=== PATIENT | male | born 1955 | race African-American/Black ===

== ENCOUNTER 2018-12-27 17:24 | Inpatient (IN) | payer MEDICARE ==
[2018-12-27 18:35] LABS: ALT (SGPT) 16 U/L (8-55); AST (SGOT) 27 U/L (5-34); Albumin 3.2 g/dL (3.4-4.8); Alkaline Phosphatase 99 U/L (40-150); Anion Gap 15 mmol/L (10-20); BUN (Urea Nitrogen) 32 mg/dL (8.4-25.7); Bilirubin, Total 0.5 mg/dL (0.2-1.2); Calc. Creatinine Clearance 0 mL/min (70-130); Calcium 9.4 mg/dL (7.8-10.44); Carbon Dioxide 23 mmol/L (23-31); Chloride 99 mmol/L (98-107); Estimated GFR-MDRD 37; Glucose 221 mg/dL (80-115); Hemoglobin 10.5 g/dL (14.0-18.0); Mean Corpuscular Hemoglobin 26.5 pg (27.0-31.0); Mean Corpuscular Volume 85.7 fL (78.0-98.0); Platelet Count 434 thou/uL (130-400); Protein, Total 8.2 g/dL (5.8-8.1); RBC Distribution Width 13.7 % (11.5-14.5); Red Blood Cell (RBC) Count 3.97 mill/uL (4.70-6.10); Sodium 133 mmol/L (136-145); White Blood Cell (WBC) Count 12.5 thou/uL (4.8-10.8)
[2018-12-27 19:04] LABS: Band 5 % (5-11); Hypochromia SLIGHT = 6-15 cells (100X) (0-5/hpf); Lymphocytes 6 % (21-51); MDiff Complete? YES; Monocytes 7 % (0-10); Neutrophil 80 % (42-75); Ovalocytes SLIGHT = 2-5 cells (100X) (0-1/hpf); Platelet Morphology Comment Appears Increased; Polychromasia SLIGHT = 2-3 cells (100X) (0-2/hpf); Reactive Lymphocytes 2 % (0-10); Target Cells SLIGHT = 2-5 cells (100X) (0-1/hpf)
[2018-12-27] MEDS ORDERED: Vancomycin HCl 1.25 GM in Sodium Chloride 0.9% 250 ML 250 ML IVPB SCH (19:30)
--- NOTE | 2018-12-27 20:19 | RAD ---
LEFT FOOT THREE VIEWS: 12/27/18 HISTORY: Fever. Chills. COMPARISON: None. FINDINGS: There is diffuse bone demineralization. There is amputation of the first and second digit. There is s ome lucency and demineralization involving the residual first metatarsal and the second metatarsal. T here is also demineralization and possibly erosive changes centered about the third, fourth and fifth metatarsophalangeal joint space. On the lateral projection, there appears to be vacuum device likely associated with a plantar ulcer. There is soft tissue swelling. IMPRESSION: 1. Presumed ulcer on the plantar surface at the level of the midfoot. There is soft tissue swell ing, worrisome for cellulitis. 2. There is erosive changes and demineralization involving all five digits. Multifocal osteomyel itis cannot be excluded. POS: PPP
[2018-12-27] MEDS ORDERED: Morphine 4 MG/ML VIAL ONE (21:29)
[2018-12-27] MEDS ORDERED: HYDROcodone/Acetaminophen 5/325 mg Tablet ONE ×2 (22:32→22:33)
[2018-12-27] MEDS ORDERED: Dextrose 5% in Water 1,000 ML IV PRN (23:09)
[2018-12-27] MEDS ORDERED: HumaLOG 300 UNITS/3 ML VIAL SC PRN (23:09)
[2018-12-27] MEDS ORDERED: Dextrose 50% Abboject 50 ML SYRINGE SLOW IVP PRN (23:09)
[2018-12-27] MEDS ORDERED: Ondansetron PF 4 MG/2 ML Vial IVP PRN (23:10)
[2018-12-27] MEDS ORDERED: Acetaminophen 325 MG TAB PO PRN (23:10)
[2018-12-27] MEDS ORDERED: Acetaminophen 325 MG TAB ONE ×2 (23:13)
[2018-12-27] MEDS ORDERED: Piperacillin/Tazobactam 4.5 GM VIAL ONE (23:40)
[2018-12-27] MEDS: Piperacillin/Tazobactam 4.5 GM in Sodium Chloride 0.9% 100 ML IVPB SCH (23:43)
[2018-12-28 01:11] VITALS: BMI 26.4
[2018-12-28] MEDS: Sodium Chloride 0.9% 1,000 ML IV SCH ×2 (01:42→15:37)
[2018-12-28] MEDS ORDERED: VANCOMYCIN IVPB PRN (01:49)
--- NOTE | 2018-12-28 02:11 | HP ---
CODE STATUS: Full code. TIME OF EVALUATION: 11:00 p.m. CHIEF COMPLAINT: Fever and right foot pain. HISTORY OF PRESENT ILLNESS: This is a 63-year-old male patient with past medical history of recent amputation on the left foot. Surgery was done by Dr. Bolanos. The patient had both diabetes foot ulcer that was nonhealing and also have underlying peripheral vascular disease. The patient came to the hospital after having fever, the fever has been up and down for the past week, measure here in the hospital 100.5. The likely trigger is an old infection on the left foot. The patient had a surgery of toe amputation, symptoms are moderate. The pain in the foot has been reported as 7/10 associated with some shortness of breath. The symptoms started insidiously and gradually have been getting worse. REVIEW OF SYSTEMS: CONSTITUTIONAL: The patient had fever, chills, generalized weakness. RESPIRATORY: Occasional cough, no sputum production, shortness of breath. CARDIOVASCULAR: No chest pain or palpitations. GASTROINTESTINAL: No nausea, no vomiting, diarrhea, or abdominal pain. TRIAL LAWYER: No dizziness, headache, or feeling lightheaded. The patient does have peripheral neuropathy, this is treated. GENITOURINARY: No burning on urination. EXTREMITIES: The patient has left metatarsal redness, swelling, pain, has blackish color in that area. All other systems were reviewed and negative except for the findings mentioned above. PAST MEDICAL HISTORY: The patient has history of diabetes, foot ulcer with wound VAC, and hypertension. SURGICAL HISTORY: Foot surgery on the right and femoral bypass. SOCIAL HISTORY: No alcohol, no drug use. No smoking history. FAMILY HISTORY: Mother and father with diabetes. KNOWN ALLERGIES: No known drug allergies. REPORTED MEDICATIONS: 1. Atorvastatin. 2. Losartan. PHYSICAL EXAMINATION: VITAL SIGNS: On presentation, blood pressure 108/61, heart rate 115, respiratory rate was 18, temperature 99, pain was 7/10, oxygen saturation was 96 on room air. GENERAL APPEARANCE: The patient is alert, oriented, mild distress due to pain. HEENT: Eyes, normal conjunctiva. Moist oral mucosa. Anicteric. No JVD. RESPIRATORY: Bilateral air entry. No rales. No wheezes. Symmetric expansion. CARDIOVASCULAR: Normal rate, regular rhythm. No murmurs. No gallop. ABDOMEN: Soft, normal bowel sounds. MUSCULOSKELETAL: The patient has left metatarsal area that is swollen, tender, with change in coloration, warm. SKIN: Warm, intact. No pallor, no rash except for the findings mentioned above. Peripheral pulses are present. Capillary refill seems to be intact. NEURO: No evidence of any new focal weakness. Baseline speech. Cranial nerves seems to be intact. PSYCH: The patient is in good mood. No anxiety. Optimal judgment. DIAGNOSTIC STUDIES: Foot x-ray was done. The patient has presumed ulcer in the plantar surface at the level of the mid foot. There is soft tissue swelling, worrisome for cellulitis. There are erosive changes and demineralization involving all 5 digits. Multifocal osteomyelitis cannot be excluded. LABORATORY DATA: Labs were reviewed. The patient has white count 12.5, hemoglobin 10.5, MCV 85.7, platelet count 434. Chemistry; sodium 133, potassium 4.0, chloride 99, carbon dioxide 23, anion gap 15, BUN 32, creatinine 1.8, the previous creatinine was 1.3, GFR 37, glucose 221, lactic acid 1.9, calcium 9.4, total bilirubin 0.5, AST 27, ALT 16, alkaline phosphatase 99. Serum total protein 8.2, albumin 3.2, globulin 5.0, albumin-globulin ratio is 0.6. ASSESSMENT AND PLAN: The patient will be placed in the hospital with following medical problems: 1. Sepsis. The patient has fever, tachycardia, possible source is left foot osteomyelitis. The patient has been started on broad-spectrum antibiotics, follow cultures, we will adjust treatment as needed. The patient will need followup from Dr. Bolanos to see if any other surgical procedure is needed. 2. Left foot osteomyelitis remains as a possibility. Given x-ray findings, the patient has been started on broad-spectrum antibiotics. Plan as above to go to Dr. Bolaons. The patient is high risk for further need for amputation. 3. Uncontrolled diabetes. The patient has blood sugar of 221. We will reconcile home medications. We will place the patient on sliding scale for optimal control. The patient received counselling for diabetic diet. 4. Chronic normocytic anemia. This might be related to chronic kidney disease, also due to chronic infection, no need for any acute intervention, we will treat underlying problems, we will monitor, we will treat accordingly. 5. Hyponatremia with sodium of 133. This is mild, no need for any acute intervention at this point. We will monitor, we will treat accordingly. 6. Acute on chronic kidney injury. The previous creatinine was 1.3, today is 1.8. We will give some gentle hydration, we will monitor fluid status, we will adjust treatment as needed. 7. Uncontrolled hypertension. The patient presented with systolic blood pressure . We will reconcile home medications, we will not treat aggressively given risk for septic shock. 8. Left foot ulcer, we will order wound care. Rest of recommendations per Dr. Bolanos and Wound Care. 9. Deep venous thrombosis prophylaxis. Job ID: [id number]
[2018-12-28 04:41] LABS: #Eosinphils 0.1 thou/uL (0.0-0.7); #Lymphocytes 1.5 thou/uL (1.20-3.40); #Monocytes 1.3 thou/uL (0.11-0.59); #Neutrophils 10.2 thou/uL (1.40-6.50); %Basophils 0.3 % (0.0-1.0); %Eosinophils 0.7 % (0.0-10.0); %Lymphocytes 11.2 % (21.0-51.0); %Monocytes 10.2 % (0.0-10.0); %Neutrophils 77.6 % (42.0-75.0); Hemoglobin 8.7 g/dL (14.0-18.0); Mean Corpuscular HGB CONC 31.3 g/dL (32.0-36.0); Mean Corpuscular Hemoglobin 26.8 pg (27.0-31.0); Mean Corpuscular Volume 85.5 fL (78.0-98.0); Mean Platelet Volume 8.8 fL (7.4-10.4); Platelet Count 373 thou/uL (130-400); RBC Distribution Width 13.7 % (11.5-14.5); Red Blood Cell (RBC) Count 3.24 mill/uL (4.70-6.10); White Blood Cell (WBC) Count 13.2 thou/uL (4.8-10.8)
[2018-12-28 05:04] LABS: Anion Gap 16 mmol/L (10-20); BUN (Urea Nitrogen) 26 mg/dL (8.4-25.7); Calc. Creatinine Clearance 69 mL/min (70-130); Calcium 8.4 mg/dL (7.8-10.44); Carbon Dioxide 20 mmol/L (23-31); Chloride 102 mmol/L (98-107); Estimated GFR-MDRD 67; Glucose 141 mg/dL (80-115); Potassium 3.8 mmol/L (3.5-5.1); Sodium 134 mmol/L (136-145)
[2018-12-28] MEDS: HYDROcodone/Acetaminophen 5/325 mg Tablet PO PRN ×3 (08:01→19:48)
[2018-12-28] MEDS ORDERED: Non-Formulary Item 1 EACH (Gabapentin [Gabapentin] 1 TAB) PO SCH (09:00)
[2018-12-28] MEDS ORDERED: Atorvastatin Calcium 40 MG TAB PO SCH (09:00)
[2018-12-28] MEDS ORDERED: Famotidine 20 MG TAB PO SCH (09:00)
[2018-12-28] MEDS ORDERED: Non-Formulary Item 1 EACH (Losartan Potassium [Cozaar] 50 MG) PO SCH (09:00)
[2018-12-28] MEDS: Piperacillin/Tazobactam 4.5 GM in Sodium Chloride 0.9% 100 ML IVPB SCH ×3 (09:45→23:16)
[2018-12-28] MEDS: Atorvastatin Calcium 40 MG TAB PO SCH (13:44)
[2018-12-28] MEDS: Gabapentin 300 MG CAP PO SCH ×4 (13:44→20:07)
[2018-12-28] MEDS: Famotidine 20 MG TAB PO SCH ×2 (13:44→20:08)
[2018-12-28] MEDS: Losartan 25 MG TAB PO SCH (13:45)
[2018-12-28] MEDS: Vancomycin HCl 1.5 GM in Sodium Chloride 0.9% 250 ML 300 ML IVPB SCH (16:29)
--- NOTE | 2018-12-28 18:07 | CON ---
DATE OF CONSULTATION: This is a 63-year-old gentleman, who recently underwent amputation of the first and second digits and metatarsals of the left foot for deep space wound infection related to peripheral arterial disease. He was transferred to rehab with his wound VAC and was scheduled to see me last week, but did not make the appointment. He reported fever and pain in his foot over the prior 24 hours and presented to the emergency room last night, where he was admitted and placed on antibiotics. I examining this morning and he did have the wound VAC in place. He was in no distress at that time. He had a good Doppler signal in his femoral popliteal graft. He had poor Doppler signals in his pedal vessels. He had 3 new small eschars on the dorsum of his foot near the ankle. The wound VAC was in place and he expressed concern about pain with removal and I told him that we would remove it later in the day. I examined later today and he has a new large areas of black eschar on the wound that had previously been red last week. This is a foul-smelling material and some pale granulation in the center of the wound. At this time, I think that the tissue loss and progress suggests severe PAD and I think BK amputation would be most appropriate; however, as this has been the case, previously the patient is refusing this. I do not think this wound will improve with hyperbaric oxygen therapy and whether any intervention on his tibial vessels will improve this is something to consider, and we will look into this. Job ID: [id number]
--- NOTE | 2018-12-28 20:10 | PDOC.PN ---
- Subjective Encounter Start Date: 12/28/18 Encounter Start Time: 20:00 Subjective: f/u for DM foot ulcers s/p amputation of first/second digits and distal -: metatarsals now with current wound vac, swelling, worsening -: cellulitis/osteomyelitis/gangrene tx with Zosyn/Vanc - Objective Resuscitation Status - Order Detail: 12/27/18 23:10 Resuscitation Status Routine Resuscitation Status: FULL: Full Resuscitation MAR Reviewed: Yes Vital Signs & Weight: Vital Signs (12 hours) Temp Pulse Resp BP BP Pulse Ox 12/28/18 19:35 98.8 F 100 18 125/78 94 L 12/28/18 16:00 98.6 F 93 18 134/75 97 12/28/18 12:00 98.7 F 93 18 131/72 97 12/28/18 08:40 98.1 F 100 18 158/80 H 99 Weight Weight 190 lb 0.615 oz I&O: 12/27/18 12/28/18 12/29/18 06:59 06:59 06:59 Intake Total 1550 Output Total 300 Balance 1250 Result Diagrams: 12/28/18 04:12 12/28/18 04:12 Additional Labs: Accuchecks 12/28/18 12/28/18 12/28/18 15:55 11:10 05:58 POC Glucose 125 H 134 H 129 H Microbiology 12/27/18 18:03 Venous blood - Left Arm Blood Culture - Preliminary Specimen has been received and culture in progress. No Growth to date. 12/27/18 17:55 Venous blood - Right Arm Blood Culture - Preliminary Specimen has been received and culture in progress. No Growth to date. Laboratory Tests 12/27/18 12/27/18 12/28/18 17:55 17:55 04:12 WBC 12.5 H Hgb 10.5 L Plt Count 434 H Neutrophils % 77.6 H Neutrophils % (Manual) 80 H Sodium 133 L Creatinine 1.84 H Radiology Reviewed by me: Yes (L foot x-ray - + cellulitis, osteo changes of metatarsals likely infection) Dx/Plan (1) Gangrene of left foot Code(s): I96 - GANGRENE, NOT ELSEWHERE CLASSIFIED Status: Acute Comment: Severe necrosis and gangrenous changes to L foot, plan for transfer to [facility] for ?vascular intervention vs BKA (2) Osteomyelitis of left foot Code(s): M86.9 - OSTEOMYELITIS, UNSPECIFIED Status: Acute Comment: Considering surgical options, continue Zosyn/Vancomycin, pain control, wound care (3) Diabetic ulcer of left foot associated with diabetes mellitus due to underlying condition Code(s): E08.621 - DIABETES MELLITUS DUE TO UNDERLYING CONDITION W FOOT ULCER; L97.529 - NON-PRESSURE CHRONIC ULCER OTH PRT LEFT FOOT W UNSP SEVERITY Status : Chronic Comment: See above, Wound vac with WCT, advanced, complex wound likely necessitating BKA (4) PAD (peripheral artery disease) Code(s): I73.9 - PERIPHERAL VASCULAR DISEASE, UNSPECIFIED Status: Chronic Comment: Anti-platelet therapy, considering revascularization options (5) DM (diabetes mellitus) type II uncontrolled, periph vascular disorder Code(s): E11.51 - TYPE 2 DIABETES W DIABETIC PERIPHERAL ANGIOPATH W/O GANGRENE; E11.65 - TYPE 2 DIABETES MELLITUS WITH HYPERGLYCEMIA Status: Chronic Comment : ISS, ADA, serial accuchecks (6) BRAD (acute kidney injury) Code(s): N17.9 - ACUTE KIDNEY FAILURE, UNSPECIFIED Status: Acute Comment: Improved, IVF's, avoid nephrotoxic meds and limit contrast exposure - Plan continue antibiotics, outreach and education social worker, out of bed/ambulate Stable overall -: Continue WCT with wound vac mgmt -: Continue Vancomycin/Zosyn -: Plan for transfer to [facility] in [place] in am -: Continue IVF's * .
--- NOTE | 2018-12-28 20:29 | CON ---
DATE OF CONSULTATION: 12/28/2018 REASON FOR CONSULTATION: PVD and nonhealing ulcers. HISTORY OF PRESENT ILLNESS: Mr. Hussein is a pleasant 63-year-old gentleman, who comes to the hospital for fever and chills. He has severe peripheral vascular disease bilaterally. He had an occluded left SFA and necrotic toe, that was offered to be amputated. Family did not want this, so a femoral-popliteal bypass was performed. Despite this, he continued to not be able to heal. He has just only 1-vessel runoff to his foot and that artery is a posterior tibialis artery, but is severely diseased ostially as well. Flush occluded AT and mid 100% occlusion of the peroneal artery, which reconstitutes from collaterals from PT distally. He had to have an amputation of 2 toes in part of his foot because of necrotic tissue and he is back with fevers, chills, and he is on IV antibiotics. I have been asked to give my opinion on his peripheral vascular disease. PAST MEDICAL HISTORY: 1. Type-2 diabetes. 2. Hypertension. 3. Ulcer as above. PAST SURGICAL HISTORY: 1. Left femoral-popliteal bypass. 2. Amputation of 2 toes on the left foot. SOCIAL HISTORY: No alcohol, tobacco, or drugs. FAMILY HISTORY: Diabetes, but no early coronary artery disease. OUTPATIENT MEDICATIONS: Include; 1. Losartan. 2. Atorvastatin. ALLERGIES: NO KNOWN DRUG ALLERGIES. REVIEW OF SYSTEMS: A 12-point review of systems was done and was found to be negative unless stated in the history of present illness. PHYSICAL EXAMINATION: VITAL SIGNS: Temperature 98.6, pulse 93, respiratory rate 18, saturating 97% on room air, blood pressure 134/75. GENERAL: Awake, alert, and oriented x3. No distress. HEENT: Normocephalic and atraumatic. NECK: Supple. LUNGS: Clear. CARDIOVASCULAR: S1, S2. No S3 or S4. No murmurs. ABDOMEN: Soft. Positive bowel sounds. EXTREMITIES: No edema. SKIN: Warm and dry. LABORATORY DATA: Laboratory work was reviewed. He has a white count of 12, up to 13.2; hemoglobin of 8.7, down from 10.5; hematocrit of 27; platelet count of 373. Chemistry is remarkable for creatinine at 1.84, down to 1.3 after IV fluids. Lactic acid was 1.9, albumin of 3.2, globulin of 5.0, glucose was a little bit high at 120s and 130s. Foot x-ray shows ulcer on the plantar surface at the level of the mid foot with soft tissue swelling with erosive changes and demineralization involving the five digits. Multifocal osteomyelitis suggested. ASSESSMENT: 1. Left foot osteomyelitis. 2. Left leg severe peripheral vascular disease. 3. Status post femoral-popliteal bypass on the left. PLAN: I had a long conversation with Mr. Hussein, his , and his daughter, the way to salvage the limb in any case is having at least 2 decent arteries go down the leg. In his case, Dr. Bolanos has already bypassed his SFA and he has good flow below the knee, but then after the artery trifurcates, there was a flush occluded AT and severe stenosis of the bifurcation of the posterior tibialis artery. The peroneal artery is actually widely patent until the mid portion, where it is completely occluded and it reconstitutes distally. This situation is difficult as the risk of nonhealing even with intervening on that artery is high. I have discussed with the family several situations and the best approach in my mind would be to try to send him to a multidisciplinary approach for limb salvage. I have contacted Dr. Judith Pierce at [facility] and they have accepted the patient for transfer for their multidisciplinary team for limb salvage and peripheral vascular disease. Family is in agreement to this. We will begin the process for transfer. Job ID: [id number]
[2018-12-28] MEDS ORDERED: Melatonin 3 MG TAB PO PRN (23:42)
[2018-12-29] MEDS: HYDROcodone/Acetaminophen 5/325 mg Tablet PO PRN ×4 (00:03→13:42)
[2018-12-29] MEDS: Losartan 25 MG TAB PO SCH (08:49)
[2018-12-29] MEDS: Atorvastatin Calcium 40 MG TAB PO SCH (08:50)
[2018-12-29] MEDS: Piperacillin/Tazobactam 4.5 GM in Sodium Chloride 0.9% 100 ML IVPB SCH ×2 (08:50→16:09)
[2018-12-29] MEDS: Famotidine 20 MG TAB PO SCH (08:50)
[2018-12-29] MEDS: Gabapentin 300 MG CAP PO SCH ×3 (08:50→16:54)
[2018-12-29] MEDS: Sodium Chloride 0.9% 1,000 ML IV SCH (08:50)
[2018-12-29 10:07] VITALS: BP 139/76; TEMP 98.6
[2018-12-29] MEDS ORDERED: Morphine 4 MG/ML VIAL SLOW IVP PRN (10:11)
[2018-12-29] MEDS ORDERED: Morphine 4 MG/ML VIAL SLOW IVP SCH (10:15)
[2018-12-29 13:32] LABS: Vancomycin, Trough 9.8 ug/mL
[2018-12-29] MEDS: Vancomycin HCl 1.5 GM in Sodium Chloride 0.9% 250 ML 300 ML IVPB SCH (14:00)
[2018-12-29] MEDS ORDERED: Vancomycin HCl 1 GM in Premix Bag 1 BAG IVPB SCH (15:00)
--- NOTE | 2018-12-30 04:17 | DIS ---
DATE OF ADMISSION: 12/27/2018 DATE OF DISCHARGE: 12/29/2018 DISCHARGE DIAGNOSES: 1. Gangrene of the left foot. 2. Osteomyelitis of the left foot. 3. Diabetic ulcer of the left foot. 4. Peripheral artery disease, severe. 5. Acute kidney injury, improved. CONSULTATIONS: 1. Dr. Bolanos with Vascular Surgery Service. 2. Dr. Gant with Cardiology Service. PERTINENT LAB AND X-RAY FINDINGS: Sodium ranged between 133-134, creatinine ranged between 1.30-1.84. Estimated GFR ranged between 37 to 67. Lactic acid level 1.9. Calcium ranged between 8.4 to 9.4, albumin 3.2. CBC showed a white blood cell count ranged between 12.5 to 13.2, hemoglobin ranged between 8.7 to 10.5. Blood cultures x2 dated 12/27/2018 showed no growth at 48 hours. Three-view of the left foot dated 12/27/2018 showed ulcerative changes in the plantar surface at the level of the midfoot. Erosive changes and demineralization involving all 5 digits. Multifocal osteomyelitis likely. HOSPITAL COURSE: The patient was admitted to the medical floor after initially presenting with fever and a left foot pain. The patient with recent amputation and debridement of the left foot due to extensive osteomyelitis and diabetic foot ulceration with a nonhealing ulcer in the context of peripheral arterial disease. The patient is status post left femoral-popliteal bypass surgery to assist in wound healing of the left foot. The patient was evaluated by the vascular surgery service with recommendations for [id number] amputation. The patient was not willing to pursue this type of treatment and wanted revascularization and potential limb salvage. The patient was also evaluated by the cardiology service who recommended transfer to a higher level of care for potential revascularization and limb salvage at a center that performs these procedures. The patient received IV vancomycin and Zosyn during the hospital course as well as pain control with IV morphine sulfate and Mccaulley. The patient was cleared for transfer to [facility] [place] [facility] in [place], [place] for potential revascularization and limb salvage on 12/29/2018. I have discussed disposition with the patient and followup instructions, at which point, the patient verbalized understanding and in agreement. The patient overall clinically stable and ready for to transfer to [facility] in [place], [place] on 12/29/2018. CURRENT MEDICATIONS: 1. Lipitor 40 mg 1 tab p.o. daily. 2. Pepcid 20 mg p.o. b.i.d. 3. Gabapentin 600 mg p.o. q.i.d. 4. Cozaar 50 mg p.o. daily. 5. Zanaflex 4 mg p.o. q.i.d. p.r.n. 6. Mccaulley 5/325 mg 2 tablets p.o. q.4 hours p.r.n. pain. 7. Melatonin 3 mg p.o. at bedtime. 8. Zosyn 4.5 g IV every 6 hours. 9. Vancomycin 1 g IV b.i.d. FOLLOWUP: The patient may follow up with his primary care provider, Dr. Stevo Elder after discharge from [facility] in [place], [place]. CONDITION ON DISCHARGE: Fair. ACTIVITY: Ad-darnell. DIET: ADA and heart healthy. CODE STATUS: Full. DISPOSITION: Discharged to [place], [place] with attending physician, Dr. Salas. TIME SPENT: Total time preparing and coordinating discharge, 35 minutes. Job ID: [id number]
== END 2018-12-29 17:53 | disposition short-term general hospital (02) | DRG 872 ==
LOC: ERS 17:24 → ERHOLD 22:34 → ONC 12-28 07:55
PROVIDERS: ADMIT Hospitalist; ATTEND Hospitalist
DX: A41.9 Sepsis, unspecified organism (principal); M86.8X7 Other osteomyelitis, ankle and foot; I70.92 Chronic total occlusion of artery of the extremities; E11.52 Type 2 diabetes mellitus with diabetic peripheral angiopathy with gangrene; I70.262 Atherosclerosis of native arteries of extremities with gangrene, left leg; N17.9 Acute kidney failure, unspecified; E11.65 Type 2 diabetes mellitus with hyperglycemia; E11.621 Type 2 diabetes mellitus with foot ulcer; E11.69 Type 2 diabetes mellitus with other specified complication; L97.529 Non-pressure chronic ulcer of other part of left foot with unspecified severity; D64.9 Anemia, unspecified; I10 Essential (primary) hypertension; Z89.422 Acquired absence of other left toe(s); Z95.820 Peripheral vascular angioplasty status with implants and grafts; Z79.899 Other long term (current) drug therapy
CPT/HCPCS: 36415; 36416; 80048; 80053; 80202; 83605; 85025; 87040; 96361; 96365; 96367; 96375; J1956; J2270; J2543; J3370; J7050